=== PATIENT | male | born 1985 | race Caucasian/White ===

== ENCOUNTER 2022-02-13 07:54 | Emergency (ER) | payer OTHER, MEDICAID, SELFPAY ==
[2022-02-13] VITALS (16 sets, daily range): BP systolic 137–141; BP diastolic 74–107; PULSE 103–141; RESP 13–24; TEMP 36.6; O2SAT 96–100
--- NOTE | ~2022-02-13 | CT_ITS ---
EXAMINATION: CT abdomen pelvis w con DATE: 02/13/2022 10:26 INDICATION: Abdominal pain. Constipation. Blood in stool. TECHNIQUE: Computed tomography (CT) of the abdomen and pelvis was performed without intravenous contr ast. Automated exposure control and iterative reconstruction technique were employed. The dose-length product was 781.31 mGy-cm. COMPARISON: None. FINDINGS: The visualized portions of the lung bases are clear without pneumonia or pleural effusion. The heart size is normal. No pericardial effusion. The liver, gallbladder, spleen, pancreas, adrenal glands, and kidneys are normal. Stool distends the rectum. The appendix is normal. There are no patho logically enlarged lymph nodes. There is no free intraperitoneal fluid. There are benign bone islands in the proximal femora. There is mild thoracolumbar spondylosis. IMPRESSION: 1. Stool distends the rectum. Reviewed, dictated and finalized at location A.
[2022-02-13 08:16] LABS: Basophils Absolute Auto 0.1 K/mm3 (0.0-0.1); Basophils Percent Auto 0.4 % (0.2-1.2); Eosinophils Percent Auto 0.1 % (0-4.4); Hematocrit 46.6 % (42.0-52.0); Hemoglobin 15.5 g/dL (14.0-18.0); Immature Granulocyte Absolute 0.06 K/mm3 (0.00-0.031); Immature Granulocyte Percent A 0.4 % (0-0.5); Lymphocytes Absolute Auto 1.12 K/mm3 (0.9-3.2); Lymphocytes Percent Auto 6.8 % (18.3-44.2); Mean Corpuscular HGB Conc 33.3 g/dl (32-36); Mean Corpuscular Volume 87.3 fl (80-100); Mean Platelet Volume 9.2 fl (7.4-10.4); Monocytes Absolute Auto 1.4 K/mm3 (0.1-0.6); Monocytes Percent Auto 8.2 % (2.6-8.5); Neutrophils Absolute Auto 13.9 K/mm3 (1.3-6.7); Neutrophils Percent Auto 84.1 % (45.5-73.1); Platelet Count Result 396 k/mm3 (150-375); Red Blood Count 5.34 M/mm3 (4.6-6.20); Red Cell Distribution Width 12.7 % (11.5-14.5); White Blood Count 16.5 K/mm3 (4.5-10.0)
--- NOTE | 2022-02-13 08:30 | PC.NURSE ---
Pt attempting ua at this time.
[2022-02-13 08:33] LABS: Alkaline Phosphatase 115 U/L (38-126); Anion Gap 14 mmol/L (8-16); Aspartate Amino Transferase 50 U/L (17-59); Bilirubin,Total 0.7 mg/dL (0.2-1.3); Blood Urea Nitrogen 22 mg/dL (9-20); Calcium 9.5 mg/dL (8.4-10.2); Carbon Dioxide 22 mmol/L (22-30); Chloride 103 mmol/L (98-107); Estimated CRCL calculation 89 ml/min; Estimated Glomerular Filt Rate > 60; Glucose 128 mg/dL (65-110); Lipase 93 U/L (23-300); Potassium 3.7 mmol/L (3.4-5.0); Sodium 139 mmol/L (137-145)
[2022-02-13 08:39] LABS: Alanine Aminotransferase 65 U/L (4-50)
--- NOTE | 2022-02-13 08:41 | ED.ABDPAIN ---
HPI - Abdominal Pain General Chief Complaint: Abdominal Pain Stated Complaint: constipation pain Time Seen by Provider: 02/13/22 08:05 Source: patient and family Mode of arrival: ambulatory Limitations: no limitations History of Present Illness HPI narrative: 36-year-old male presents emergency room secondary constipation. States he woke up to try to have a bowel movement today and he could not seem to get it to come out. States he sat on the toilet for 30-minute screening. Patient has underlying history of autism. Parents are at bedside. States has had some mild issues with constipation throughout his life. Family gave him to glycerin suppositories to see if that would help with no relief. Said no associated nausea or vomiting. Patient states he actually stuck his finger in the rectum making feel hard stool. He also took about a half a bottle of magnesium citrate. He is not on any medications that should be causing constipation. Related Data Home Medications Medication Instructions Recorded Confirmed dextroamphetamine-amphetamine 20 20 mg PO DAILY 01/10/22 01/10/22 mg tablet dextroamphetamine-amphetamine ER 20 mg PO DAILY 01/10/22 01/10/22 20 mg 24hr capsule,extend release Allergies Allergy/AdvReac Type Severity Reaction Status Date / Time No Known Allergies Allergy Mild Verified 01/10/22 10:40 Review of Systems Review of Systems: CONSTITUTIONAL: Denies fever, chills, or sweats. EYES: Denies visual changes, redness, or discharge. ENT: Denies rhinorrhea, congestion, sore throat, or otalgia. CARDIOVASCULAR: Denies chest pain, palpitations, or edema. RESPIRATORY: Denies cough or dyspnea. GASTROINTESTINAL: Denies nausea, vomiting, or diarrhea. Having constipation with some lower abdominal cramping pain GENITOURINARY: Denies dysuria or hematuria. SKIN: Denies rash or itching. MUSCULOSKELETAL: Denies back pain, joint pain, or myalgia. NEUROLOGIC: Denies headache, numbness, or weakness. PSYCHIATRIC: Denies anxiety or depression. [facility] Past Medical History Medical History BMI 27.0-27.9,adult BMI 31.0-31.9,adult BMI greater than 30 Low testosterone in male MDD (major depressive disorder) Premature ejaculation Family History Family History Mother Hypertension Family history of diabetes mellitus in first degree relative Social History Social History Alcohol intake: never Exam Narrative: APPEARANCE: Well appearing, no pain or distress, well-nourished. Head normocephalic and atraumatic. EYES: PERRLA/EOMI, conjunctivae very clear. NOSE: Normal with no drainage EARS:TMS clear [place], with good light reflex. THROAT: Pharynx clear, no exudate. NECK: Supple. No adenopathy, no masses. RESPIRATORY: Airway patent, respirations nonlabored. Clear to auscultation bilaterally, no rales, rhonchi, wheezing. CARDIOVASCULAR: Regular rate and rhythm without murmurs, rubs, or gallops. ABDOMINAL: Soft, nontender, nondistended, no hepatosplenomegaly Musculoskeletal: Moves all extremities. Strength/ROM intact, No edema, No calf tenderness. NEURO: Alert. Cranial nerves II through XII intact. Normal gait. Good coordination. Nonfocal examination. SKIN:: Warm, dry. Normal Color PSYCHIATRIC: Normal affect/mood, normal interaction Rectal: Hard stool was noted but it is high in the rectal vault. Course Reevaluation(s) Reevaluation #1: Patient's white count is no to be elevated. Went back and reevaluated patient. He is having a panic attack at this time. He is hyperventilating and tachycardic. He states he still having pain. We will give the patient some Ativan as well as some morphine and Zofran to help with his symptoms. We will also obtain a CT of his abdomen and pelvis with IV contrast. Patient has taken the magnesium citrate and already had the suppository a
[2022-02-13] MEDS: MAGNESIUM CITRATE 300 ML BTL PO (08:49)
[2022-02-13] MEDS: BISACODYL 10 MG SUPPOSITORY RECTAL (08:54)
--- NOTE | 2022-02-13 09:11 | PC.NURSE ---
Pt tearful still unable to give ua.
--- NOTE | 2022-02-13 09:12 | PC.NURSE ---
Spoke with EDP about concern for need for CT due to pt vs, presentation and wbc, edp reports he does not think it's necessary.
--- NOTE | 2022-02-13 10:04 | PC.NURSE ---
Again spoke with EDSpike Soliman about concern for pt presentation and pain. Verbal order given for CT abd w/ contrast, 1mg ativan IVP, 4mg morphine ivp, and 4 mg zofran ivp stat.
--- NOTE | 2022-02-13 10:05 | PC.NURSE ---
EDP at bedside
[2022-02-13 10:10] LABS: Add Urine Microscopic? YES; Appearance Urine Clear (Clear); Bilirubin Urine Negative (Negative); Blood Urine 2+ (Negative); Color Urine Yellow (Yellow); Glucose Urine UA Negative (Negative); Ketones Urine 1+ mg/dL (Negative); Leukocyte Esterase Ur Negative LEU/UL (Negative); Mucus Urine Rare /lpf; Nitrate Urine Negative (Negative); Protein Urine Negative (Negative); RBC Urine >75 /hpf (0-2); Specific Grav Ur 1.015 (1.001-1.035); Urobilinogen Urine Negative mg/dL (<2.0)
[2022-02-13] MEDS: ONDANSETRON INJ 4 MG/2 ML VIAL IV PUSH (10:11)
[2022-02-13] MEDS: MORPHINE SULFATE (*CRX) 4 MG/ML INJ IV PUSH (10:11)
[2022-02-13] MEDS: LORazepam INJ (*CRX) 2 MG/ML VIAL 1 MG IV PUSH (10:11)
--- NOTE | 2022-02-13 10:15 | PC.NURSE ---
Pt to ct at this time.
--- NOTE | 2022-02-13 11:50 | PC.NURSE ---
Pt noted to have large BM, commode cleaned and edp informed.
== END 2022-02-13 12:22 | disposition home or self-care (01) ==
PROVIDERS: Emergency Provider Emergency Medicine; PCP Family Medicine
DX: K59.00 Constipation, unspecified (principal); F32.9 Major depressive disorder, single episode, unspecified; Z79.899 Other long term (current) drug therapy
CPT/HCPCS: 36415; 74177; 80053; 81001; 83690; 85025; 96374; 96375; 99284; A9270; J2060; J2270; J2405; Q9967

== ENCOUNTER 2022-05-16 13:59 | Outpatient (CLI) | payer OTHER, MEDICAID, SELFPAY ==
[2022-05-16 14:24] LABS: Basophils Absolute Auto 0.1 K/mm3 (0.0-0.1); Basophils Percent Auto 0.7 % (0.2-1.2); Eosinophils Absolute Auto 0.3 K/mm3 (0-0.3); Eosinophils Percent Auto 4.6 % (0-4.4); Hematocrit 46.9 % (42.0-52.0); Hemoglobin 15.3 g/dL (14.0-18.0); Immature Granulocyte Absolute 0.02 K/mm3 (0.00-0.031); Immature Granulocyte Percent A 0.3 % (0-0.5); Lymphocytes Absolute Auto 1.47 K/mm3 (0.9-3.2); Lymphocytes Percent Auto 19.8 % (18.3-44.2); Mean Corpuscular HGB Conc 32.6 g/dl (32-36); Mean Corpuscular Hemoglobin 28.4 pg (26-34); Mean Platelet Volume 8.8 fl (7.4-10.4); Monocytes Absolute Auto 0.5 K/mm3 (0.1-0.6); Monocytes Percent Auto 6.9 % (2.6-8.5); Neutrophils Percent Auto 67.7 % (45.5-73.1); Platelet Count Result 396 k/mm3 (150-375); Red Blood Count 5.39 M/mm3 (4.6-6.20); Red Cell Distribution Width 12.8 % (11.5-14.5); White Blood Count 7.4 K/mm3 (4.5-10.0)
--- NOTE | 2022-05-16 14:30 | ECG_ITS ---
Measurements Intervals [place] Rate: 122 P: 56 NV: 142 QRS: 45 QRSD: 102 T: 40 QT: 331 QTc: 473 Interpretive Statements SINUS TACHYCARDIA BORDERLINE ST-T WAVE ABNORMALITY- ANTERIOR LEADS ABNORMAL ECG Electronically Signed On 05-16-2022 15:09:32 CDT by Shawn Erickson D.O.
[2022-05-16 14:33] LABS: Anion Gap 11 mmol/L (8-16); Blood Urea Nitrogen 16 mg/dL (9-20); Calcium 9.2 mg/dL (8.4-10.2); Carbon Dioxide 26 mmol/L (22-30); Chloride 103 mmol/L (98-107); Estimated Glomerular Filt Rate 58; Glucose 113 mg/dL (65-110); Potassium 3.8 mmol/L (3.4-5.0); Sodium 140 mmol/L (137-145)
== END 2022-05-16 14:00 | disposition home or self-care (01) ==
LOC: ANHLAB 14:00
PROVIDERS: PCP Family Medicine; Visit Provider Family Medicine
DX: R00.0 Tachycardia, unspecified (principal); R94.31 Abnormal electrocardiogram [ECG] [EKG]
CPT/HCPCS: 36415; 80048; 84443; 85025; 93005

== ENCOUNTER 2022-05-25 10:15 | Outpatient (CLI) | payer OTHER, MEDICAID, SELFPAY ==
--- NOTE | 2022-05-30 16:09 | WPDHOLTEREM ---
Holter/Event Monitor Holter/Event Monitor Date of procedure: 05/30/22 Holter/Event Procedure: 24 Hr Holter Monitor Diagnosis: Tachycardia Indications: None male with tachycardia Image/Tracing Quality: Good Finding: The patient was monitored for 24 hours. The underlying rhythm was sinus with a minimum heart rate of 61 beats per minute, average heart rate of 97 beats per minute and maximum heart rate of 160 beats per minute. There were no PVCs and only 8 APCs were seen. There was no atrial fibrillation, SVT, heart block or ventricular tachycardia. The patient had no symptoms during this recording. Conclusion: Holter monitor is remarkable for high average heart rate, 97 beats per minute. Consider inappropriate sinus tachycardia, anemia, thyroid disease, drug effect etc.
== END 2022-05-25 10:16 | disposition home or self-care (01) ==
PROVIDERS: PCP Family Medicine; Visit Provider Family Medicine
DX: R00.0 Tachycardia, unspecified (principal)
CPT/HCPCS: 93225; 93226

== ENCOUNTER 2024-02-21 17:44 | Emergency (ER) | payer OTHER, MEDICAID, SELFPAY ==
[2024-02-21 18:18] VITALS: BP 126/87; PULSE 80; RESP 16; TEMP 35.9; O2SAT 97
--- NOTE | 2024-02-21 20:36 | ED.BACK ---
HPI - Back Pain/Injury General Chief Complaint: Back Pain/Injury Stated Complaint: lower left sided back pain Time Seen by Provider: 02/21/24 20:07 History of Present Illness HPI Narrative: Patient is a 38-year-old male who presents ER with left-sided back pain. Ongoing last week. Sharp in nature. He will have waves of pain that last for about an hour and he cannot physically move because movement makes the pain worse. No pain in abdomen. He is concerned it may be related to when he eats. No diarrhea or constipation. No belching or bloating. No known injury to the back. No radiation into the groin. No urinary frequency urgency or dysuria. No lower extremity numbness or weakness. Related Data Home Medications Medication Instructions Recorded Confirmed dextroamphetamine-amphetamine 20 20 mg PO DAILY 01/10/22 12/18/23 mg tablet (Adderall) Allergies Allergy/AdvReac Type Severity Reaction Status Date / Time No Known Allergies Allergy Verified 02/21/24 17:47 Review of Systems Constitutional: Constitutional: Reports no additional constitutional complaints Cardiovascular: Cardiovascular: Reports no additional cardiovascular complaints Respiratory: Respiratory: Reports no additional respiratory complaints Gastrointestinal: Gastrointestinal: Reports no additional gastrointestinal complaints Musculoskeletal: Musculoskeletal: Reports back pain, Denies arthralgias, Denies joint swelling and Denies muscle cramps PMFSH Past Medical History Medical History (Updated 02/21/24 @ 20:43 by Elia English MD) ADD (attention deficit disorder) Autism BMI 27.0-27.9,adult BMI 28.0-28.9,adult BMI 31.0-31.9,adult BMI greater than 30 Constipation Elevated BP without diagnosis of hypertension Elevated glucose Hemorrhoids Low testosterone in male MDD (major depressive disorder) Painless hematuria Premature ejaculation Seborrheic dermatitis Tachycardia Tachycardia Thrombocytosis Transaminitis Family History Family History Mother Hypertension Family history of diabetes mellitus in first degree relative Diabetes mellitus Father Tremors of nervous system Sibling Diabetes mellitus Social History Social History Smoking status: Never smoker Second hand tobacco smoke exposure: No Alcohol intake: never Substance use: never Substance use type: does not use Do You Feel Safe in your Home?: Yes Lack of Transportation: No Lack of Food: Never True Current Housing: I Have Housing Concerned About Future Housing: No Difficulty Paying Gas/Electric Bills: No Difficulty Paying for Meds: No Currently Unemployed: No Education: Associate Degree Difficulty w/ Childcare or Family Care: No Living arrangements: alone Occupation/Education: unemployed Gender identity (if verbalized by the patient): Male Exam Narrative: GENERAL: Well-appearing, well-nourished, and in no acute distress. HEAD: Normocephalic, atraumatic. ENT: Mucous membranes moist. CHEST: Clear to auscultation. No respiratory distress. HEART: Regular rate and rhythm. Normal peripheral pulses. Back: No midline tenderness at T/L spine. No reproducible paraspinal muscle tenderness the T/L-spine. EXTREMITIES: Normal range of motion. No edema. NEURO: Alert and oriented x3. PSYCH: Normal mood and affect. Course Course Emergency Course: Toradol for pain. Discussed tx play with muscle relaxers and antiinflammitories. Vital Signs Vital signs: Vital Signs Temperature 96.6 F L 02/21/24 18:18 Pulse Rate 80 02/21/24 18:18 Respiratory Rate 16 02/21/24 18:18 Blood Pressure 126/87 02/21/24 18:18 Pulse Oximetry 97 02/21/24 18:18 Temperature 96.6 F L 02/21/24 18:18 Pulse Rate 80 02/21/24 18:18 Respiratory Rate 16 02/21/24 18:18 Blood Pressure 126/87 02/21/24 18:18 Pulse Oxim
[2024-02-21] MEDS: KETOROLAC (*BKC) 60 MG/2 ML VIAL IM (20:52)
[2024-02-21 21:19] VITALS: BP 124/78; PULSE 75; RESP 18; TEMP 36.1; O2SAT 100
== END 2024-02-21 21:02 | disposition home or self-care (01) ==
PROVIDERS: Emergency Provider Emergency Medicine; PCP Family Medicine
DX: M62.830 Muscle spasm of back (principal); F98.8 Other specified behavioral and emotional disorders with onset usually occurring in childhood and adolescence; F84.0 Autistic disorder; F32.9 Major depressive disorder, single episode, unspecified
CPT/HCPCS: 96372; 99283; J1885

== ENCOUNTER 2024-12-02 00:40 | Day surgery (SDC) | payer OTHER, MEDICAID, SELFPAY ==
[2024-11-14 12:55] VITALS: BMI 28.9
--- NOTE | 2024-12-01 10:03 | P.PNAN_ITS ---
Anes - Initial Pre Proc Eval Procedure: Operation Date: 12/02/24 08:00 Proposed Procedures p Colonoscopy with hemorrhoid banding - Renato Ramirez DO s Hemorrhoid banding, Anal Rectal Procedure Rectal EUA - Renato Ramirez DO Date/Time: 12/01/24 10:03 Surgeon: Renato Ramirez DO Pre Op Diagnosis: rectal bleeding,, grade 3 internal hemorrhoids Patient Data Age: 39 Gender: M Height: 1.88 m Weight: 102.1 kg Allergies Allergy/AdvReac Type Severity Reaction Status Date / Time No Known Allergies Allergy Verified 12/02/24 06:49 Home Medications ?Medication ?Instructions ?Recorded ?Confirmed ?Type dextroamphetamine-amphetamine 20 20 mg PO DAILY 01/10/22 12/02/24 History mg tablet (Adderall) vortioxetine 20 mg tablet 20 mg PO DAILY #30 tabs 04/18/22 12/02/24 Rx (Trintellix) dextroamphetamine-amphetamine ER 20 mg PO DAILY #30 caps 07/31/22 12/02/24 Rx 20 mg 24hr capsule,extend release (Adderall XR) bupropion HCl 150 mg 24 hr tablet, 150 mg PO QAM #30 tabs 01/30/24 12/02/24 Rx extended release metoprolol tartrate 25 mg tablet 25 mg PO BID #180 tabs 11/30/24 12/02/24 Rx Patient hx anesthesia problems: none Family hx anesthesia problems: none Results Review: All pre-operative results and documents have been reviewed as part of the pre- operative evaluation. [facility] Past Medical History Medical History Anxiety Autism Seborrheic dermatitis Hemorrhoids ADD (attention deficit disorder) Painless hematuria Elevated glucose Transaminitis Thrombocytosis Tachycardia Constipation Elevated BP without diagnosis of hypertension Tachycardia MDD (major depressive disorder) Low testosterone in male BMI greater than 30 Premature ejaculation Family History Family History Mother Hypertension Family history of diabetes mellitus in first degree relative Diabetes mellitus Father Tremors of nervous system Sibling Diabetes mellitus Social History Social History Smoking status: Never smoker Second hand tobacco smoke exposure: No Alcohol intake: never Substance use: never Substance use type: does not use Do You Feel Safe in your Home?: Yes Lack of Transportation: No Lack of Food: Never True Current Housing: I Have Housing Concerned About Future Housing: No Difficulty Paying Gas/Electric Bills: No Difficulty Paying for Meds: No Currently Unemployed: No Education: Associate Degree Difficulty w/ Childcare or Family Care: No Living arrangements: alone Occupation/Education: unemployed Gender identity (if verbalized by the patient): Male Spiritual care concerns: No Anes - Eval Final PreProcedure Day of Procedure 12/01/24 10:03 Patient weight: overweight Heart: regular rate and rhythm Lungs: clear to auscultation Airway: Mallampati scale class II Neurological: alert and oriented Last oral intake: >/= 8 hours ASA classification: III Emergent: no Anesthetic plan: proceed Anesthesia type and monitoring: general GIVS and standard monitoring Results Review: All pre-operative results and documents have been reviewed as part of the pre- operative evaluation. Informed Consent: The patient's anesthetic plan and its attendant risks and benefits were discussed with the patient/family/POA. Questions were solicited and answers provided to the satisfaction of the patient/family/POA.
[2024-12-02 06:40] VITALS: BP 123/79; PULSE 101; RESP 18; TEMP 35.7; O2SAT 100; BMI 29.3
[2024-12-02] MEDS: LACTATED RINGERS 1,000 ML 150 ML IV CONT (07:01)
--- NOTE | 2024-12-02 07:53 | WPDHPUPDATE1 ---
History and Physical Update Update Date/Time: 12/02/24 07:53 History and Physical has been reviewed, including an updated exam of the patient. There are NO changes in the patient's condition. Risks, benefits, and alternatives have been discussed and questions answered. Patient agrees to proceed with procedure.
[2024-12-02 08:29] VITALS: BP 91/56; PULSE 81; RESP 20; O2SAT 98
[2024-12-02 08:39] VITALS: BP 117/82; PULSE 79; RESP 17; O2SAT 100
[2024-12-02 08:49] VITALS: BP 117/84; PULSE 65; RESP 17; O2SAT 100
--- NOTE | 2024-12-02 09:17 | P.OP_ITS ---
Procedure Note - Detailed Date of Procedure 12/02/24 Pre-op Diagnosis rectal bleeding, grade 3 internal hemorrhoids Post-op Diagnosis Same Procedure Performed internal hemorrhoid rubber banding x3 Surgeon Renato Ramirez, DO Anesthesia MAC Indications this is a 39-year-old man who presents for colonoscopy and internal hemorrhoid rubber banding. He has been experiencing rectal bleeding frequently. He denies any rectal pain. He was found to have prolapsing internal hemorrhoids on exam. He has never had a colonoscopy before. Findings Prolapsing internal hemorrhoids were identified. The hemorrhoid tissue was more prominent in the right posterior and left lateral regions, but there was also a slightly enlarged hemorrhoid in the right anterior region. Internal hemorrhoid rubber banding was performed at all 3 locations. Description of Procedure Procedure as well as risks, benefits, and alternatives were discussed with the patient. Written consent was obtained and placed in chart procedure. Patient was brought back to endoscopy suite. He was placed in left lateral decubitus position. At the conclusion of the colonoscopy, an anoscope was then inserted and the anal rectal canal was carefully inspected. Internal hemorrhoid rubber banding was performed in the right posterior, right anterior, and left lateral locations. No other significant abnormalities noted. The scope was then. Tato rausch was then awakened from anesthesia and transferred to recovery. Estimated Blood Loss 2 Complications No immediate complications Condition Stable Disposition Same day [facility] Billing Surgery - Charge Forward: Surgery Billing
--- OUTSIDE RECORDS SUMMARY | 2024-12-04 15:13 | XMS_ITS | Patient Health Summary ---
Author Organization [facility] Address [address] [place] [address] Care Team Providers Care System Administration Advisor Name Role Phone Nam Gomez MD Unavailable [phone] Shauna Wilson RN Unavailable Renato Dubon MD Unavailable [phone] Julio Cesar Grande MD, Dragan Woodyodore Primary Care Provider Note from [facility],non-owned Affiliates and Associated Physician Practices is amultiple site organization consisting of ambulatory clinics and hospital sitesin [place] and [place]. This disclosure is being madepursuant to the Care Everywhere program and may not contain all information available regarding this patient. Last updated 18.[facility] Allergies No known active allergies Medications * Be aware that medications may not be up to date on this document. Alwaysverify current medications with the patient. * metoprolol tartrate IR (Lopressor) 25 MG tablet(Started 01/08/2023) Take 1 (one) tablet by mouth 2 times daily * verapamil (Isoptin) 120 MG tablet Take 1 (one) tablet by mouth once daily * buPROPion XL 24hr (Wellbutrin-XL) 150 MG tablet(Started 11/14/2024) Take 2 (two) tablets by mouth every morning Reasons: Major Depressive Disorder 5 refills by 11/14/2025 * vortioxetine (Trintellix) 20 MG tablet(Started 11/14/2024) Take 1 (one) tablet by mouth once daily Reasons: Dysthymia 1 refill by 11/14/2025 * amphetamine-dextroamphetamine (Adderall) 20 MG tablet(Started 11/14/2024) Take 1 (one) tablet by mouth daily before lunch Reasons: Attention Deficit Hyperactivity Disorder * amphetamine-dextroamphetamine XR 24hr (Adderall XR) 20 MG capsule(Started 11/14/2024) Take 1 (one) capsule by mouth every morning Reasons: Attention Deficit Hyperactivity Disorder Ended Medications* vortioxetine (Trintellix) 20 MG tablet(Started 08/15/2024) (Discontinued) Take 1 (one) tablet by mouth once daily Reasons: Dysthymia 1 refill by 08/15/2025 * buPROPion XL 24hr (Wellbutrin-XL) 150 MG tablet(Started 08/15/2024) (Discontinued) Take 1 (one) tablet by mouth every morning 1 refill by 08/15/2025 * amphetamine-dextroamphetamine XR 24hr (Adderall XR) 20 MG capsule(Started 10/09/2024)(Discontinued) Take 1 (one) capsule by mouth every morning Reasons: Attention Deficit Hyperactivity Disorder * amphetamine-dextroamphetamine (Adderall) 20 MG tablet(Started 10/09/2024) (Discontinued) Take 1 (one) tablet by mouth daily before lunch Reasons: Attention Deficit Hyperactivity Disorder Active Problems Problem Noted Date Diagnosed Date Cluster C personality disorder 06/09/2021 Attention deficit disorder 07/12/2011 Asperger's disorder 07/12/2011 Persistent depressive disorder 07/10/2011 Migraine without aura and wi thout status migrainosus, not intractable 07/10/2011 Resolved Problems Problem Noted Date Diagnosed Date Resolved Date Blurring of vision 01/29/2017 8 Immunizations * INFLUENZA VACCINE, TRIV. (AFLURIA, FLUZONE TRIVALENT; 6MO+) (IIV3)(Given 10/07/2012) * Covid Moderna primary monovalent 12+ yr 0.5mL(Given 01/31/2021, 12/30/2020) * DTaP VACCINE IM (6wk-6yrs)(Given 06/28/1992, 06/23/1988, 05/14/1987, 03/05/1987, 1986) * FLU VACCINE QUAD IIV4 PF ID(Given 10/26/2017) * HEP B VACCINE, PED/ADOL(Given 03/06/1997, 10/22/1996, 09/23/1996) * HIB BOOSTER(Given 12/05/1988) * INFLUENZA VACCINE(Given 07/26/2011, 08/24/2010) * MMR(Given 06/18/1992, 02/11/1988) * POLIO IPV(Given 06/28/1992, 06/23/1988, 05/14/1987, 03/05/1987, 1986) * iNFLUENZA VACCINE, RECOM-CLEMONS, QUADR. (FLUBLOCK QUADRIVALENT; 18Y+) (RIV4)(Given 08/02/2020) Social History Tobacco Use Types Packs/Day Years Used Date Smoking Tobacco: Never Smokeless Tobacco: Never Tobacco Cessation:Counseling Given: Not Answered Alcohol Use Standard Drinks/Week Comments No 0 (1 standard drink = 0.6 oz pur e alcohol) PHQ-2 Answer Date Recorded Patient Health Questionnaire-2 Score 2 11/14/2024 Sex and Gender Information Value Date Recorded Sex Assigned at Not on file Gender Identity Not on file Sexual Orientation Not on file Last Filed Vital Signs Vital Sign Reading Time Taken Comments Blood Pressure 147/90 11/14/2024 2:51 PM SALON MANAGER Pulse 112 11/14/2024 2:51 PM SALON MANAGER Temperature 36.6 ??C (97.8 ??F) 11/14/2024 2:51 PM CS T Respiratory Rate 15 08/04/2016 10:15 AM CDT Oxygen Saturation 98% 12/15/2022 9:04 AM SALON MANAGER Inhaled Oxygen Concentration - - Weight 103.6 kg (228 lb 8 oz) 11/14/2024 2:51 PM SALON MANAGER Height 183.6 cm (6' 0.3 ) 11/14/2024 2:51 PM SALON MANAGER Body Mass Index 30.73 11/14/2024 2:51 PM SALON MANAGER Procedures * RPR(Performed 08/04/2020) Performed for Screen for STD (sexually transmitted disease) * CBC W AUTO DIFFERENTIAL(Performed 08/04/2020) Performed for Chronic fatigue * TSH HI LOW REFLEX FREE T4(Performed 08/04/2020) Performed for Chronic fatigue * LIPID PROFILE(Performed 08/04/2020) Performed for Chronic fatigue * COMPREHENSIVE METABOLIC PANEL(Performed 08/04/2020) Performed for Chronic fatigue * TESTOSTERONE FREE+TOTAL PANEL(Performed 08/04/2020) Performed for Chronic fatigue * HIV-1 HIV-2 ANTIBODY + HIV P24 AG PANEL(Performed 08/04/2020) Performed for Screen for STD (sexually transmitted disease) * TRICHOMONAS VAGINALIS REBECCA(Performed 08/04/2020) Performed for Screen for STD (sexually transmitted disease) * CHLAMYDIA + GC AMPLIFIED PROBE(Performed 08/04/2020) Performed for Screen for STD (sexually transmitted disease) * PATHOLOGY/CYTOLOGY REPORT ORDER(Performed 04/16/2018) * GLUCOSE - POINT OF CARE (AMB) SFM(Performed 10/26/2017) Performed for Vasovagal episode * MRI BRAIN WO CONTRAST(Performed 02/09/2017) Performed for Chronic tension-type headache, not intractable, Blurring of vision * URINALYSIS REFLEX TO MICROSCOPIC NO CULTURE(Performed 02/08/2016) Performed for Pre-procedure lab exam * CBC W AUTO DIFFERENTIAL(Performed 02/08/2016) Performed for Pre-procedure lab exam * COMPREHENSIVE METABOLIC PANEL(Performed 02/08/2016) Performed for Pre-procedure lab exam * EKG 12-LEAD(Performed 02/08/2016) Performed for Pre-procedure lab exam * IMAGING/RADIOLOGY/XRAY RESULTS ORDER(Performed 02/08/2016) * XR CHEST 2VW(Performed 05/26/2015) Performed for Pre-op testing * COMPREHENSIVE METABOLIC PANEL(Performed 05/26/2015) Performed for Pre-operative clearance * CARDIAC EKG ORDER(Performed 05/10/2015) * TSH(Performed 04/02/2012) Performed for Excessive sweating * COMPREHENSIVE METABOLIC PANEL(Performed 04/02/2012) Performed for Routine general medical examination at a health care facility * LIPID PROFILE(Performed 04/02/2012) Performed for Routine general medical examination at a health care facility Results * TSH HI LOW REFLEX FREE T4 (08/04/2020 10:47 AM CDT) TSH 1.050 0.450 - 4.500 uIU/mL [facility] INSURANCE BILL Comment:FASTING Blood BLOOD SPECIMEN / Unknown 08/04/2020 10:47 AM CDT 08/04/2020 Narrative Resulting Agency Comment Lab Testing performed at: [facility] [address] ??[facility] [phone] Dragan Harrell Jr., MD LAB - CHEMISTRY ORDERABLES Performing Organization Address [facility] Co de Phone Number [facility] INSURANCE BILL [address] [place] [address] * RPR (08/04/2020 10:47 AM CDT) RPR Non Reactive Non Reactive [facility] INSURANCE BILL Comment:FASTING Blood BLOOD SPECIMEN / Unknown 08/04/2020 10:47 AM CDT 08/04/2020 Narrative Resulting Agency Comment Lab Testing performed at: [facility] [address] [facility] ??[facility] [id number] Dragan Harrell Jr., MD LAB - CHEMISTRY ORDERABLES Performing Organization Address [facility] Co de Phone Number [facility] INSURANCE BILL [address] [place] [address] * TESTOSTERONE FREE+TOTAL PANEL (08/04/2020 10:47 AM CDT) Testosterone Total LC-MS 346.3 264.0 - 916.0 ng/dL [facility] INSURANCE BILL Comment: This [facility] LC/MS-MS method is currently certified by the CDC Hormone Standardization Program (HoSt). Adult male reference interval is based on a population of healthy nonobese males (BMI <30) between 19 and 39 years old. Amandeep, et.al. JCEM 2017,102;8544-3261. PMID: 45175400. Free Testosterone(Direct) 9.3 8.7 - 25.1 pg/mL [facility] INSURANCE BILL Comment:FASTING Blood BLOOD SPECIMEN / Unknown 08/04/2020 10:47 AM CDT 08/04/2020 Narrative [facility] INSURANCE BILL - 08/07/2020 5:07 PM CDT Test(s) [id number], Total, LC/MS was developed and its performance characteristics determined by [email or web address]. It has not been cleared or approved by the Food and Drug Administration. Resulting Agency Comment Lab Testing performed at: [facility] [address] ??[facility] [id number] Dragan Harrell Jr., MD LAB - CHEMISTRY ORDERABLES [facility] INSURANCE BILL [address] [place] [address] * CBC WITH DIFFERENTIAL (08/04/2020 10:47 AM CDT) Only the most recent of2 resultswithin the time period is included. WBC 5.8 3.4 - 10.8 x10E3/uL [facility] INSURANCE BILL RBC 5.48 4.14 - 5.80 x10E6/uL [facility] INSURANCE BILL Hemoglobin 15.6 13.0 - 17.7 g/dL [facility] INSURANCE BILL Hematocrit 46.9 37.5 - 51.0 % [facility] INSURANCE BILL MCV 86 79 - 97 fL [facility] INSURANCE BILL MCH 28.5 26.6 - 33.0 pg [facility] INSURANCE BILL MCHC 33.3 31.5 - 35.7 g/dL [facility] INSURANCE BILL RDW 12.3 11.6 - 15.4 % [facility] INSURANCE BILL Platelet Count 358 150 - 450 x10E3/uL [facility] INSURANCE BILL Granulocytes % 59 Not Estab. % [facility] INSURANCE BILL Lymphocytes % 25 Not Estab. % [facility] INSURANCE BILL Monocytes % 11 Not Estab. % [facility] INSURANCE BILL Eosinophils % 4 Not Estab. % [facility] INSURANCE BILL Basophils % 1 Not Estab. % [facility] INSURANCE BILL Immature Cells NOT NEEDED [facility] INSURANCE BILL Comment:Ancillary determined the test is not needed. Granulocytes Absolute 3.4 1.4 - 7.0 x10E3/uL [facility] INSURANCE BILL Lymphocytes Absolute 1.5 0.7 - 3.1 x10E3/uL [facility] INSURANCE BILL Monocytes Absolute 0.6 0.1 - 0.9 x10E3/uL [facility] INSURANCE BILL Eosinophils Absolute 0.2 0.0 - 0.4 x10E3/uL [facility] INSURANCE BILL Basophils Absolute 0.1 0.0 - 0.2 x10E3/uL [facility] INSURANCE BILL Immature Granulocytes 0 Not Estab. % [facility] INSURANCE BILL Immature Granulocytes Absolute 0.0 0.0 - 0.1 x10E3/uL [facility] INSURANCE BILL nRBC NOT NEEDED [facility] INSURANCE BILL Comment:Ancillary determined the test is not needed. Comment Hematology NOT NEEDED [facility] INSURANCE BILL Comment: FASTING Ancillary determined the test is not needed. Blood BLOOD SPECIMEN / Unknown 08/04/2020 10:47 AM CDT 08/04/2020 Narrative Resulting Agency Comment [facility] [address] [facility] ??[facility] [phone] Dragan Harrell Jr., MD LAB - HEMATOLOGY ORDERABLES [facility] INSURANCE BILL [address] [place] [address] * (ABNORMAL) COMPREHENSIVE METABOLIC PANEL (08/04/2020 10:47 AM CDT) Only the most recent of4 resultswithin the time period is included. Glucose 100(H) 65 - 99 mg/dL [facility] INSURANCE BILL BUN 20 6 - 20 mg/dL [facility] INSURANCE BILL Creatinine 1.17 0.76 - 1.27 mg/dL [facility] INSURANCE BILL eGFR by MDRD 81 >59 mL/min/1.7 3 [facility] INSURANCE BILL eGFR by MDRD 94 >59 mL/min/1.7 3 [facility] INSURANCE BILL BUN/Creatinine Ratio 17 9 - 20 [facility] INSURANCE BILL Sodium 143 134 - 144 mmol/L [facility] INSURANCE BILL Potassium 4.4 3.5 - 5.2 mmol/L [facility] INSURANCE BILL Chloride 103 96 - 106 mmol/L [facility] INSURANCE BILL CO2 24 20 - 29 mmol/L [facility] INSURANCE BILL Calcium 9.8 8.7 - 10.2 mg/dL [facility] INSURANCE BILL Protein Total 7.9 6.0 - 8.5 g/dL [facility] INSURANCE BILL Albumin 4.7 4.0 - 5.0 g/dL [facility] INSURANCE BILL Globulin Total 3.2 1.5 - 4.5 g/dL [facility] INSURANCE BILL Albumin/Globulin Ratio 1.5 1.2 - 2.2 [facility] INSURANCE BILL Bilirubin Total 0.6 0.0 - 1.2 mg/dL [facility] INSURANCE BILL Alkaline Phosphatase 123(H) 39 - 117 IU/L [facility] INSURANCE BILL AST 35 0 - 40 IU/L [facility] INSURANCE BILL ALT 77(H) 0 - 44 IU/L [facility] INSURANCE BILL Comment:FASTING Blood BLOOD SPECIMEN / Unknown 08/04/2020 10:47 AM CDT 08/04/2020 Narrative Resulting Agency Comment Lab Testing performed at: [address] ??[facility] [phone] Dragan Harrell Jr., MD LAB - CHEMISTRY ORDERABLES Performing Organization Address City/[facility]/ZIP Co de Phone Number [facility] INSURANCE BILL [address] [place] [address] * (ABNORMAL) LIPID PROFILE (08/04/2020 10:47 AM CDT) Only the most recent of2 resultswithin the time period is included. Cholesterol 172 100 - 199 mg/dL [facility] INSURANCE BILL Triglycerides 168(H) 0 - 149 mg/dL [facility] INSURANCE BILL HDL Cholesterol 46 >39 mg/dL [facility] INSURANCE BILL VLDL Calculated 29 5 - 40 mg/dL [facility] INSURANCE BILL LDL Calculated 97 0 - 99 mg/dL [facility] INSURANCE BILL Comment NOT NEEDED [facility] INSURANCE BILL Comment: FASTING Ancillary determined the test is not needed. Blood BLOOD SPECIMEN / Unknown 08/04/2020 10:47 AM CDT 08/04/2020 Narrative Resulting Agency Comment Lab Testing performed at: [facility] ??[facility] [phone] Dragan Harrell Jr., MD LAB - CHEMISTRY ORDERABLES Performing Organization Address City/[facility]/ZIP Co de Phone Number [facility] INSURANCE BILL [address] [place] [address] * HIV-1 HIV-2 ANTIBODY + HIV P24 AG PANEL (08/04/2020 10:46 AM CDT) HIV Screen 4th Generation w Reflex Non Reactive Non Reactive [facility] INSURANCE BILL Comment:FASTING Blood BLOOD SPECIMEN / Unknown 08/04/2020 10:46 AM CDT 08/04/2020 Narrative Resulting Agency Comment Lab Testing performed at: [facility] [id number] [facility] ??[facility] [phone] Dragan Harrell Jr., MD LAB - CHEMISTRY ORDERABLES Performing Organization Address [facility] de Phone Number [facility] INSURANCE BILL [address] [place] [address] * TRICHOMONAS VAGINALIS REBECCA (08/04/2020 10:46 AM CDT) Trichomonas vaginalis by REBECCA Negative Negative [facility] INSURANCE BILL Comment:FASTING Microbiology URINE / Unknown 08/04/2020 1 0:46 AM CDT 08/04/2020 Narrative Resulting Agency Comment Lab Testing performed at: [facility] ??[place] [phone] Dragan Harrell Jr., MD LAB - MICROBIOLOGY ORDERABLES Performing Organization Address [facility] de Phone Number [facility] INSURANCE BILL [address] [place] [address] * CHLAMYDIA + GC AMPLIFIED PROBE (08/04/2020 10:46 AM CDT) Chlamydia REBECCA Urine Negative Negative [facility] INSURANCE BILL GC REBECCA Urine Negative Negative [facility] INSURANCE BILL Comment:FASTING Microbiology URINE / Unknown 08/04/2020 1 0:46 AM CDT 08/04/2020 Narrative Resulting Agency Comment [facility]: [facility] [address] ??[place] [phone] Dragan Harrell Jr., MD LAB - MICROBIOLOGY ORDERABLES Performing Organization Address [facility] de Phone Number [facility] INSURANCE BILL [address] [place] [address] * PATHOLOGY/CYTOLOGY REPORT ORDER (04/16/2018 2:51 PM CDT) Narrative 04/16/2018 2:51 PM CDT Ordered by an unspecified provider. Scanned Document LAB - PATHOLOGY/CYTO LOGY ORDERABLES * (ABNORMAL) GLUCOSE - POINT OF CARE (AMB) SFM (10/26/2017) Glucose WB/POC 111(A) 75 - 110 mg/dl Blood BLOOD SPECIMEN / Unknown 10/26/2017 Dragan Harrell Jr., MD LAB - POINT OF CARE ORDERABLES * MRI BRAIN NON CONTRAST (02/09/2017 1:28 PM CDT) Anatomical Region Laterality Modality Head Magnetic Resonan ce 02/09/2017 11:1 1 PM CDT Impressions 02/09/2017 11:13 PM CDT No acute findings in the brain. ??Paranasal sinuses are clear. Narrative 02/09/2017 11:13 PM CDT MRI Brain without contrast Indication: ??Chronic tension-type headache, not intractable. ??Patient complains of severe recurrent headaches. Technique: Noncontrast images of the brain were performed using a variety of MR sequences. ??This report was transcribed with a computerized speech recognition system. ??In an effort to expedite patient care, it has not been adjusted for typographical, grammatical or syntax problems by a trained medical scientific officer. For questions about the report, please contact the Radiology Department. Findings: The ventricles and sulci are normal in size. There is no intracranial hemorrhage, mass, or mass-effect. No abnormal extra-axial fluid collection is seen. No findings suggestive of demyelinating disease are appreciated. The region of the pituitary gland, pineal gland, and foramen magnum are normal. The major arterial and dural venous flow-voids at the skull base are patent. Procedure Note Sergio Bo MD - 02/09/2017 MRI Brain without contrast Indication: Chronic tension-type headache, not intractable. Patient complains of severe recurrent headaches. Technique: Noncontrast images of the brain were performed using a variety of MR sequences. This report was transcribed with a computerized speech recognition system. In an effort to expedite patient care, it has not been adjusted for typographical, grammatical or syntax problems by a trained medical scientific officer. For questions about the report, please contact the Radiology Department. Findings: The ventricles and sulci are normal in size. There is no intracranial hemorrhage, mass, or mass-effect. No abnormal extra-axial fluid collection is seen. No findings suggestive of demyelinating disease are appreciated. The region of the pituitary gland, pineal gland, and foramen magnum are normal. The major arterial and dural venous flow-voids at the skull base are patent. IMPRESSION No acute findings in the brain. Paranasal sinuses are clear. Damian Stewart MD MR ORDERABLES * URINALYSIS ROUTINE AUTO (02/08/2016 4:35 PM CDT) Specific [place] UA 1.026 1.005 - 1.030 [facility] INSURANCE BILL pH UA 6.0 5.0 - 7.5 [facility] INSURANCE BILL Color UA Yellow Yellow [facility] INSURANCE BILL Appearance Clear Clear [facility] INSURANCE BILL Leukocyte UA Negative Negative [facility] INSURANCE BILL Protein UA Negative Negative/Tra ce [facility] INSURANCE BILL Glucose UA Negative Negative [facility] INSURANCE BILL Glucose Reflex NOT NEEDED [facility] INSURANCE BILL Comment:Ancillary determined the test is not needed Ketone UA Negative Negative [facility] INSURANCE BILL Occult Blood Urine Negative Negative [facility] INSURANCE BILL Bilirubin UA Negative Negative [facility] INSURANCE BILL Urobilinogen 0.2 0.2 - 1.0 mg/dL [facility] INSURANCE BILL Nitrite UA Negative Negative [facility] INSURANCE BILL Microscopic Examination Urine [facility] INSURANCE BILL Comment:Microscopic not brian cated and not performed. Urine specimen (specimen) URINE SPECIMEN OBTAINED BY CLEAN CATCH PROCEDURE / Unknown 02/08/2016 4:35 PM CDT 02/08/2016 5:51 PM CDT Narrative Resulting Agency Comment [facility] [place] [id number] [facility] ??[facility] [phone] Armin Argueta MD LAB - URINALYSIS ORD ERABLES [facility] INSURANCE BILL * IMAGING/RADIOLOGY/XRAY RESULTS ORDER (02/08/2016) Anatomical Region Laterality Modality Other Jeff Allen DDS IMAGING * EKG 12-LEAD (02/08/2016) Armin Argueta MD ECG ORDERABLES [facility] RESULT SCAN * XR CHEST PA AND LATERAL (05/26/2015 5:47 PM CDT) Anatomical Region Laterality Modality Chest Radiographic Isabella ging 05/26/2015 5:58 PM CDT Impressions 05/26/2015 5:59 PM CDT ??No acute cardiopulmonary process. Narrative 05/26/2015 5:59 PM CDT Chest Two Views History: Preoperative examination, shortness of breath Comparison: None Findings: ??The lungs are clear. ??No pneumothorax or pleural effusion. The cardiomediastinal silhouette is within normal limits. Procedure Note Angelica Oshea MD - 05/26/2015 Chest Two Views History: Preoperative examination, shortness of breath Comparison: None Findings: The lungs are clear. No pneumothorax or pleural effusion. The cardiomediastinal silhouette is within normal limits. IMPRESSION No acute cardiopulmonary process. Armin Argueta MD DIAGNOSTIC IMAGING O RDERABLES * CARDIAC EKG ORDER (05/10/2015) Armin Argueta MD CARDIAC SERVICES ORD ERABLES * TSH (04/02/2012 3:13 PM CDT) TSH 0.802 0.450 - 4.500 uIU/mL [facility] ACCOUNT BILL Blood specimen (specimen) BLOOD SPECIMEN / Unknown 04/02/2012 3:13 PM CDT 04/02/2012 6:35 PM CDT Narrative Resulting Agency Comment [facility] [address] ??[facility] [phone] Armin Argueta MD LAB - CHEMISTRY CHARLENE SILVA [facility] ACCOUNT BILL Care Teams System Administration Advisor Relationship Specialty Start Date End Date Dragan Harrell Jr., MD [address] [facility] [address] [place] [address] PCP - General Family Medicine 04/05/18 Nam Gomez MD [address] [facility] [address] [place] [address] General Surgery 10/02/12 Shauna Wilson RN Registered Nurse 06/03/15 Renato Henry MD [address] [facility] [address] [place] [address] Psychiatry 10/26/17 Shauna Garber RN Registered Nurse Behavioral Health 06/03/15
--- OUTSIDE RECORDS SUMMARY | 2024-12-04 15:13 | XMS_ITS | Encounter Summary ---
Author Organization [facility] Address [address] [place] [address] Care Team Providers Care Reverberatory Skimmer Name Role Phone Deepak Hylton MD Primary Care Provider [phone] Armin Argueta MD Primary Care Provider UnavailNam Estrada MD Unavailable [phone] Judy Rivera RN Unavailable [phone] Shauna Wilson RN Unavailable Cji Renato Garcia MD Unavailable [phone] Barbara Carreno Unavailable Unavailable Julio Cesar Grande MD, Dragan Alicia Primary Care Provider Reason for Visit * Reason Onset Date Comments MEDICATION REFILL 10/23/2011 Encounter Details Date Type Department Care Team (Latest Contact Info) Description 10/23/2011 Refill \ Mychart, Generic Provider MEDICATION REFILL Social History Tobacco Use Types Packs/Day Years Used Date Smoking Tobacco: Never Smokeless Tobacco: Never Alcohol Use Standard Drinks/Week Comments No 0 (1 standard drink = 0.6 oz pur e alcohol) Sex and Gender Information Value Date Recorded Sex Assigned at Not on file Gender Identity Not on file Sexual Orientation Not on file documented as of this encounter Plan of Treatment Not on file documented as of this encounter Visit Diagnoses Not on filedocumented in this encounter Care Teams Reverberatory Skimmer Relationship Specialty Start Date End Date Deepak Hylton MD PCP - General Internal Medicine 09/15/11 04/01/12 Armin Argueta MD PCP - General Internal Medicine 04/02/12 10/25/17 Dragan Harrell Jr., MD PCP - General Family Medicine 04/05/18 Nam Gomez MD [address] [facility] [address] [place], [place] [id number] General Surgery 10/02/12 Judy Rivera, RN [address] [place] [id number] Pension Consultant 02/19/13 11/19/13 Shauna Wilson, SAWYER Registered Nurse 06/03/15 Renato Henry MD [address] [facility] [address] [place] [address] Psychiatry 10/26/17 Barbara Carreno Audio Visual Coordinator Psychiatry 02/26/18 12/01/18 Shauna Garber RN Registered Nurse Behavioral Health 06/03/15 documented as of this encounter
--- OUTSIDE RECORDS SUMMARY | 2024-12-04 15:13 | XMS_ITS | Encounter Summary ---
Author Organization [facility] Address [address] [place] [address] Care Team Providers Care Advertising Sales Manager Name Role Phone Nam Gomez MD Unavailable [phone] Shauna Wilson RN Unavailable Renato Dubon MD Unavailable [phone] Julio Cesar Grande MD, Dragan Alicia Primary Care Provider Reason for Visit * Reason Onset Date Comments MEDICATION REFILL 12/12/2022 Encounter Details Date Type Department Care Team (Late st Contact Info) Description 12/12/2022 Refill [facility]PSY[facility] [address] [place] [phone] Jcarlos Martin MD [address] [place] [address] MEDICATION REFILL Social History Tobacco Use Types Packs/Day Years Used Date Smoking Tobacco: Never Smokeless Tobacco: Never Alcohol Use Standard Drinks/Week Comments No 0 (1 standard drink = 0.6 oz pur e alcohol) PHQ-2 Answer Date Recorded PHQ2 TOTAL SCORE 4 12/15/2022 Sex and Gender Information Value Date Recorded Sex Assigned at Not on file Gender Identity Not on file Sexual Orientation Not on file documented as of this encounter Plan of Treatment Not on file documented as of this encounter Goals Goal Patient Goal Type Associated Problems Recent Progress Patient-Stated? Author Exercise 3X per week (30 min per time) Exercise No Thelma Ortiz MA [facility] Lifestyle:Decrea se anxiety / depression / stress levels Lifestyle No Thelma Ortiz MA documented as of this encounter Visit Diagnoses Diagnosis Persistent depressive disorder documented in this encounter Care Teams Advertising Sales Manager Relationship Specialty Start Date End Date Dragan Harrell Jr., MD [address] [employer] [facility] [address] [place] [address] PCP - General Family Medicine 04/05/18 Nam Gomez MD [address] [facility] [address] [place] [address] General Surgery 10/02/12 Shauna Wilson, RN Registered Nurse 06/03/15 Renato Henry MD [address] [place] [address] Psychiatry 10/26/17 Shauna Garber RN Registered Nurse Behavioral Health 06/03/15 documented as of this encounter
--- OUTSIDE RECORDS SUMMARY | 2024-12-04 15:13 | XMS_ITS | Referral Summary ---
Author Organization [facility] Address [address] [place] [address] Care Team Providers Care Title Department Manager Name Role Phone Nam Gomez MD Unavailable [phone] Shauna Wilson RN Unavailable Cji Renato Garcia MD Unavailable [phone] Julio Cesar Grande MD, Dragan Alicia Primary Care Provider Source Comments [facility],non-owned Affiliates and Associated Physician Practices is amultiple site organization consisting of ambulatory clinics and hospital sitesin [place], [place], [place] and [place]. This disclosure is being madepursuant to the Care Everywhere program and may not contain all information available regarding this patient. Last updated 18.[facility] Encounters Date Type Department Care Team Description 11/14/2024 Travel from Last 3 Months Allergies No known active allergies Medications * Be aware that medications may not be up to date on this document. Alwaysverify current medications with the patient. Medication Sig Dispensed Refills Start Date End Date Status metoprolol tartrate IR (Lopressor) 25 MG tablet Take 1 (one) tablet by mouth 2 times daily 01/08/20 23 Active verapamil (Isoptin) 120 MG tablet Take 1 (one) tablet by mouth once daily Active buPROPion XL 24hr (Wellbutrin-XL) 150 MG tabletIndications :Major Depressive Disorder Take 2 (two) tablets by mouth every morning Reasons: Major Depressive Disorder 60 tablet 5 11/14/19 25 025 Active vortioxetine (Trintellix) 20 MG tabletIndications :Persistent Depressive Disorder Take 1 (one) tablet by mouth once daily Reasons: Dysthymia 90 tablet 1 11/14/19 25 025 Active amphetamine-dextr oamphetamine (Adderall) 20 MG tabletIndications :Attention Deficit Hyperactivity Disorder Take 1 (one) tablet by mouth daily before lunch Reasons: Attention Deficit Hyperactivity Disorder 30 tablet 11/14/19 25 Active amphetamine-dextr oamphetamine XR 24hr (Adderall XR) 20 MG capsuleIndication s:Attention Deficit Hyperactivity Disorder Take 1 (one) capsule by mouth every morning Reasons: Attention Deficit Hyperactivity Disorder 30 capsule 11/14/19 25 Active vortioxetine (Trintellix) 20 MG tabletIndications :Persistent Depressive Disorder Take 1 (one) tablet by mouth once daily Reasons: Dysthymia 90 tablet 1 08/15/20 24 025 Discontinued(Re order) buPROPion XL 24hr (Wellbutrin-XL) 150 MG tablet Take 1 (one) tablet by mouth every morning 90 tablet 1 08/15/20 24 025 Discontinued amphetamine-dextr oamphetamine XR 24hr (Adderall XR) 20 MG capsuleIndication s:Attention Deficit Hyperactivity Disorder Take 1 (one) capsule by mouth every morning Reasons: Attention Deficit Hyperactivity Disorder 30 capsule 10/09/20 24 025 Discontinued(Cl inical Decision) amphetamine-dextr oamphetamine (Adderall) 20 MG tabletIndications :Attention Deficit Hyperactivity Disorder Take 1 (one) tablet by mouth daily before lunch Reasons: Attention Deficit Hyperactivity Disorder 60 tablet 10/09/20 24 025 Discontinued(Cl inical Decision) Active Problems Problem Noted Date Diagnosed Date Cluster C personality disorder 06/09/2021 Attention deficit disorder 07/12/2011 Overview (08/12/2015): Assessment & Plan (06/09/2021 9:06 PM CDT): Uncontrolled since stopping adderall and wellbutrin. Will refill until 08/16 where patient has a follow-up appointment with psychiatry. Discussed w/ [facility] nurse who states [facility] will take over once re-established. - Will rx Adderall 20mg BID until 08/16 - Will not pursue restart of Wellbutrin Asperger's disorder 07/12/2011 Overview (02/26/2018): Overview: Overview: Persistent depressive disorder 07/10/2011 Overview (07/12/2011): Multiple meds tried. See note in media, Robert Sánchez MD, May 04, 2009 Migraine without aura and wi thout status migrainosus, not intractable 07/10/2011 Overview (09/19/2015): Resolved Problems Problem Noted Date Diagnosed Date Resolved Date Blurring of vision 01/29/2017 8 Immunizations Name Administration Dates Next Due INFLUENZA VACCINE, TRIV. (AF LURIA, FLUZONE TRIVALENT; 6MO+) (IIV3) 10/07/2012 Covid Moderna primary monova lent 12+ yr 0.5mL 01/31/2021,12/30/2020 DTaP VACCINE IM (6wk-6yrs) 06/28/1992,,05/14/1987, 987,1986 FLU VACCINE QUAD IIV4 PF ID 10/26/2017 HEP B VACCINE, PED/ADOL 03/06/1997,10/22/1996, HIB BOOSTER 12/05/1988 INFLUENZA VACCINE 07/26/2011,08/24/2010 MMR 06/18/1992,02/11/1988 POLIO IPV 06/28/1992, 8,05/14/1987, 987,1986 iNFLUENZA VACCINE, RECOM-CLEMONS, QUADR. (FLUBLOCK QUADRIVALENT; 18Y+) (RIV4) 08/02/2020 Social History Tobacco Use Types Packs/Day Years [...] Comments Blood Pressure 147/90 11/14/2024 2:51 PM RENT COLLECTOR Pulse 112 11/14/2024 2:51 PM RENT COLLECTOR Temperature 36.6 ??C (97.8 ??F) 11/14/2024 2:51 PM CS T Respiratory Rate 15 08/04/2016 10:15 AM CDT Oxygen Saturation 98% 12/15/2022 9:04 AM RENT COLLECTOR Inhaled Oxygen Concentration - - Weight 103.6 kg (228 lb 8 oz) 11/14/2024 2:51 PM RENT COLLECTOR Height 183.6 cm (6' 0.3 ) 11/14/2024 2:51 PM RENT COLLECTOR Body Mass Index 30.73 11/14/2024 2:51 PM RENT COLLECTOR Plan of Treatment Not on file Goals Goal Patient Goal Type Associated Problems Recent Progress Patient-Stated? Author Exercise 3X per week (30 min per time) Exercise No Thelma Ortiz MA [facility] Lifestyle:Decrea se anxiety / depression / stress levels Lifestyle No Thelma Ortiz MA Procedures Procedure Name Priority Date/Time Associated Diagnosis Comments HIV-1 HIV-2 ANTIBODY + HIV P24 AG PANEL Routine 08/04/2020 10:46 AM CDT Screen for STD (sexually transmitted disease) from Last 3 Months or Most Recently Relevant to Health Maintenance Results * HIV-1 HIV-2 ANTIBODY + HIV P24 AG PANEL (08/04/2020 10:46 AM CDT) HIV Screen 4th Generation w Reflex Non Reactive Non Reactive [facility] INSURANCE BILL Comment:FASTING Blood BLOOD SPECIMEN / Unknown 08/04/2020 10:46 AM CDT 08/04/2020 Narrative Resulting Agency Comment Lab [facility] performed at: [facility] [address] ??[facility] [id number] Dragan Harrell Jr., MD LAB - CHEMISTRY ORDERABLES [facility] INSURANCE BILL [address] [place] [address] from Last 3 Months or Most Recently Relevant to Health Maintenance Care Teams Title Department Manager Relationship Specialty Start Date End Date Dragan Harrell Jr., MD [address] [facility] [address] [place] [phone] PCP - General Family Medicine 04/05/18 Nam Gomez MD [address] [facility] [address] [place] [address] General Surgery 10/02/12 Shauna Wilson RN Registered Nurse 06/03/15 Renato Henry MD [address] [facility] [address] [place] [address] Psychiatry 10/26/17 Shauna Garber RN Registered Nurse Behavioral Health 06/03/15
--- OUTSIDE RECORDS SUMMARY | 2024-12-04 15:13 | XMS_ITS | Clinical Summary ---
Author Organization [email or web address] Address [address] [place] [address] Care Team Providers Care Ordnance Officer Name Role Phone Nam Gomez MD Unavailable [phone] Shauna Wilson RN Unavailable Cji Renato Garcia MD Unavailable [phone] Julio Cesar Grande MD, Dragan Woodyodore Primary Care Provider Source Comments [facility],non-owned Affiliates and Associated Physician Practices is amultiple site organization consisting of ambulatory clinics and hospital sitesin [place], [place], [place] and [place]. This disclosure is being madepursuant to the Care Everywhere program and may not contain all information available regarding this patient. Last updated 18.[email or web address] Allergies No known active allergies Medications * [...] Resolved Date Blurring of vision 01/29/2017 8 Encounters Date Type Department Care Team Description 11/14/2024 Travel from Last 3 Months Immunizations Name Administration Dates Next Due INFLUENZA [...] RECOM-CLEMONS, QUADR. (FLUBLOCK QUADRIVALENT; 18Y+) (RIV4) 08/02/2020 Family History Medical History Relation Name Comments Anxiety Disorder Brother Hypertension Mother Depression Sister 1 Relation Name Status Comments Brother Alive Father Alive Maternal Grandfather Other Maternal Grandmother Other Mother Alive Paternal Grandfather Other Paternal Grandmother Other Sister 1 Alive Sister 2 Alive Social History Tobacco Use Types Packs/Day Years [...] Comments Blood Pressure 147/90 11/14/2024 2:51 PM SHOE DYER Pulse 112 11/14/2024 2:51 PM SHOE DYER Temperature 36.6 ??C (97.8 ??F) 11/14/2024 2:51 PM CS T Respiratory Rate 15 08/04/2016 10:15 AM CDT Oxygen Saturation 98% 12/15/2022 9:04 AM SHOE DYER Inhaled Oxygen Concentration - - Weight 103.6 kg (228 lb 8 oz) 11/14/2024 2:51 PM SHOE DYER Height 183.6 cm (6' 0.3 ) 11/14/2024 2:51 PM SHOE DYER Body Mass Index 30.73 11/14/2024 2:51 PM SHOE DYER Plan of Treatment Health Maintenance Due Date Last Done Comments DTAP/TDAP/TD VACCINES (6 - Tdap) 1997 06/28/1992, 06/23/1988, 05/14/1987, Additional history exists HEPATITIS C SCREENING 10/28/2004 COVID-19 VACCINE ( season) 2024 01/31/2021, 12/30/2020 INFLUENZA VACCINE (#1) 2024 , 10/26/2017, 10/07/2012, Additional history exists ZOSTER VACCINE (1 of 2) 2036 HIB VACCINE Completed 12/05/1988 HEPATITIS B VACCINE Completed 03/06/1997, 10/22/1996, 09/23/1996 HIV SCREENING Completed 08/04/2020 DEPRESSION SCREENING Completed 11/14/2024, 11/30/2023, 06/28/2023, Additional history exists HPV VACCINE Aged Out No longer eligi ble based on patient's age to complete this topic MENINGOCOCCAL (Group B) VACCINE Aged Out No longer eligible based on patient's age to complete this topic MENINGOCOCCAL VACCINE Aged Out No madelaine poornima eligible based on patient's age to complete this topic PNEUMOCOCCAL VACCINE Aged Out No long er eligible based on patient's age to complete this topic Goals Goal Patient Goal Type Associated Problems [...] Resulting Agency Comment Lab Testing performed at: [facility] ??[facility] [id number] Dragan Harrell Jr., MD LAB - CHEMISTRY ORDERABLES Performing Organization Address City/State/[facility] Co de Phone Number [facility] INSURANCE BILL [address] [place] [address] from Last 3 Months or Most Recently Relevant to Health Maintenance Care Teams Ordnance Officer Relationship Specialty Start Date End Date Dragan Harrell Jr., MD [address] [facility] [address] [place] [phone] PCP - General Family Medicine 04/05/18 Nam Gomez MD [address] [facility] [address] [place] [address] General Surgery 10/02/12 Shauna Wilson, RN Registered Nurse 06/03/15 Renato Henry MD [address] [facility] [address] [place] [address] Psychiatry 10/26/17 Shauna Garber RN Registered Nurse Behavioral Health 06/03/15
--- OUTSIDE RECORDS SUMMARY | 2024-12-04 15:13 | XMS_ITS | Encounter Summary ---
Author Organization [facility] Address [address] [place] [address] Care Team Providers Care Launderer Hand Name Role Phone Armin Argueta MD Primary Care Provider UnavailNam Estrada MD Unavailable [phone] Judy Rivera RN Unavailable [phone] Shauna Wilson RN Unavailable Renato Dubon MD Unavailable [phone] Barbara Carreno Unavailable Unavailable Julio Cesar Grande MD, Dragan Alicia Primary Care Provider Reason for Visit * Reason Onset Date Comments MEDICATION REFILL 02/06/2013 Encounter Details Date Type Department Care Team (Latest Contact Info) Description 02/06/2013 Refill TEST Mychart, Generic Provider MEDICATION REFILL Social History [...] on filedocumented in this encounter Care Teams Launderer Hand Relationship Specialty Start Date End Date Armin Argueta MD PCP - General Internal Medicine 04/02/12 10/25/17 Dragan Harrell Jr., MD PCP - General Family Medicine 04/05/18 Nam Gomez MD [address] [facility] [address] [place], [place] [phone] General Surgery 10/02/12 Judy Rivera, SAWYER [address] [facility] [address] [place] [phone] Risk Officer 02/19/13 11/19/13 Shauna Wilson, RN Registered Nurse 06/03/15 Renato Henry MD [address] [facility] [address] [place] [phone] Psychiatry 10/26/17 Barbara Carreno Installation Manager Psychiatry 02/26/18 12/01/18 Shauna Garber RN Registered Nurse Behavioral Health 06/03/15 documented as of this encounter
== END 2024-12-02 09:11 | disposition home or self-care (01) ==
PROVIDERS: PCP Family Medicine; Visit Provider Surgery
PROC: 0DJD8ZZ Inspection of Lower Intestinal Tract, Via Natural or Artificial Opening Endoscopic (ICD-10-PCS; CPT 45378; principal; 2024-12-02 08:00)
PROC: (CPT 45378; 2024-12-02 08:00)
DX: K64.2 Third degree hemorrhoids (principal); K64.5 Perianal venous thrombosis; F41.9 Anxiety disorder, unspecified; F84.0 Autistic disorder; L21.9 Seborrheic dermatitis, unspecified; F98.8 Other specified behavioral and emotional disorders with onset usually occurring in childhood and adolescence; D75.839 Thrombocytosis, unspecified; R00.0 Tachycardia, unspecified; R03.0 Elevated blood-pressure reading, without diagnosis of hypertension; F32.9 Major depressive disorder, single episode, unspecified; F52.4 Premature ejaculation
CPT/HCPCS: 45378; 46221; J2003; J2704; J7120